=== PATIENT | female | born 1960 | race American Indian/Alaskan Native ===

== ENCOUNTER 2016-05-24 08:41 | Day surgery (SDC) | payer MEDICARE ==
[~2016-05-24 08:41] MED LIST: TETRACAINE 0.5% OS PRN
[2016-05-24] MEDS: MYDRIACYL 1% OS SCH ×3 (10:54→11:08)
[2016-05-24] MEDS: AK-Dilate OS SCH ×3 (10:55→11:08)
[2016-05-24] MEDS: VIGAMOX OS SCH ×3 (10:55→11:08)
--- NOTE | 2016-05-24 11:09 | Anesthesia Consultation ---
Anesthesia Consult and Med Hx Date of service: 05/24/16 - Airway Anesthetic Teeth Evaluation: Dentures ROM Head & Neck: Adequate Mental/Hyoid Distance: Adequate Mallampati Class: Class II Intubation Access Assessment: Probably Good - Pulmonary Exam CTA: Yes - Cardiac Exam Cardiac Exam: RRR - Pre-Operative Health Status ASA Pre-Surgery Classification: ASA3 Proposed Anesthetic Plan: MAC - Pulmonary Hx Smoking: Yes (CIGARETTES 4 TO 5 CIGS PD) COPD: Yes (ON 02 2L N/C) Hx Sleep Apnea: Yes - Cardiovascular System Hx Hypertension: Yes - Central Nervous System Hx Seizures: Yes (LAST ONE 3 YRS AGO) CVA: Yes (X2) - Other Systems Hx Cancer: No
--- NOTE | 2016-05-24 11:09 | Anesthesia Day of Surgery ---
Anesthesia Day of Surgery - Day of Surgery Patient Examined: Yes Patient H&P Reviewed: Yes Patient is NPO: Yes
[2016-05-24] MEDS ORDERED: SUBLIMAZE ONE (11:33)
[2016-05-24] MEDS ORDERED: VERSED ONE (11:35)
[2016-05-24] MEDS ORDERED: DIPRIVAN 10 MG/ML IV ONE (12:56)
[2016-05-24] MEDS ORDERED: XYLOCAINE MPF 2% ONE (12:56)
[2016-05-24] MEDS ORDERED: NEO SYNEPHRINE/NS Syringe(OR USE) IV ONE (13:00)
[2016-05-24] MEDS ORDERED: ROBINUL ONE (13:21)
--- NOTE | 2016-05-24 13:29 | Operative Report ---
Operative Report Operative Report: PATIENT'S NAME: DATE OF : DATE OF SURGERY: 05/24/2016 PREOPERATIVE DIAGNOSIS: Cataract left eye POSTOPERATIVE DIAGNOSIS: Same OPERATIVE PROCEDURE: Phacoemulsification with intraocular lens implantation, left eye SURGEON: Shirlene Nash M.D. SAMPLE STITCHER SURGEON: Myrtle Lens: AO60 21.5 D ANESTHESIA: gENERAL anesthesia care in combination with topical anesthesia because of the established specific risk of reflux, arrhythmias, or anxiety attacks associated with ocular manipulation, as well as the difficulty of the nursing services manager to manage such potentially catastrophic events while simultaneously attempting to complete the surgical procedure and was deemed necessary for the patient's safety to have an Basin Tender present during the procedure whenever possible. An Basin Tender was utilized to regulate the intravenous sedation of the patient so the patient was cooperative yet not asleep in order for the patient to successfully maintain fixation of the eye on the operating light of the microscope. COMPLICATIONS: No surgical complications No blood loss. ALLERGIES: Penicillin PROGNOSIS: Excellent INDICATIONS FOR SURGERY: The patient is undergoing surgery in the hopes of eliminating or improving these visual difficulties. PROCEDURE: After arriving at the surgery center, the patient was given topical anesthetic and dilating drops, as noted in the record. The patient was then taken into the operating room and given more anesthetic drops. The eyelids , lashes, and lid margins were scrubbed with Betadine solution, and the patient was draped. The Nurse Basin Tender administered IV sedation and monitored the patient during the procedure. The eye was then fixated with a 0.12, and a stab incision was made in the peripheral clear cornea into the anterior chamber. This was made on my left side. Viscoelastic was next used to fill the anterior chamber. The eye was once again fixated with the 0.12 forceps and a keratome was used make an incision in clear cornea peripherally on my right hand side temporally. The capsule forceps were used to open the central anterior capsule and then make a continuous round capsulotomy. Hydrodissection was carried out utilizing a cannula and balanced salt solution to delineate the cortical material from the capsule and the nucleus from the cortical material. The phaco tip was introduced into the eye and used to remove the anterior cortical material in the area of the capsulotomy. Then the phaco tip was buried into the nucleus, and a chopping instrument was introduced into the eye and used to provide countertraction in the nucleus between this instrument and the phaco tip fracturing the nucleus. This procedure was repeated multiple times, providing multiple small segments of the lens, and then the phaco tip was used to remove each of these segments. An I/A tip was then used to remove the remaining cortex. The anterior chamber was refilled with viscoelastic. An one-piece, acrylic intraocular lens was then placed into an inserting cartridge. The tip of the inserting cartridge was introduced into the keratome incision and into the anterior chamber. The implant was gently advanced through the cartridge and into the eye, where it unfolded, and both haptics were placed in the capsular bag, where it centered nicely and appeared to be well fixated. After placement of the intraocular lens, the I~and~A handpiece was placed back into the eye and used to remove the viscoelastic, including viscoelastic that was behind the optic of the intraocular lens. The anterior chamber was then filled with balanced salt solution, and hydration of the wound was used to cause swelling of the wound and more appropriate watertight closure. When the wound was found to be firm, the patient was asked to comment on how bright the light was. If there was no light perception at all or if the light was substantially dimmer than during the rest of the surgery, the amount of fluid in the eye was decompressed to lower the intraocular pressure until the patient could see the bright light again. This was done to avoid any damage or decreased blood flow to the optic nerve. MEDICATIONS APPLIED AT END OF SURGERY: One drop of Pred Forte and Vigamox The patient was given a shield to wear at night and was instructed not to rub or push on the eye. DISCHARGE SUMMARY: The patient was released in stable condition. The patient and those with the patient were given a written sheet of postoperative instructions and counseling on any abnormal laboratory studies. The patient is to see us tomorrow for follow-up in the office and is to call immediately for any difficulties. Shirlene Nash M.D. Date
--- NOTE | 2016-05-24 13:30 | Short Stay Summary ---
Short Stay Documentation Date of service: 05/24/16 - History H&P: obtained from office - Allergies and Medications Current Medications: Allergies Penicillins Allergy (Verified 05/22/16 16:30) Shortness of Breath Home Medications Medication Instructions Recorded Confirmed Last Taken Type ALPRAZolam [Xanax TAB] 1 mg PO QID PRN 05/22/16 05/22/16 05/24/16 06:00 History Baclofen [Lioresal] 10 mg PO TID 05/22/16 05/22/16 05/24/16 06:00 History Clopidogrel [Plavix] 75 mg PO QDAY 05/22/16 05/24/16 05/09/16 History Cranberry Fruit [Cranberry] 4,200 mg PO BID 05/22/16 05/22/16 05/23/16 History Cyanocobalamin (Vitamin B-12) 1,000 mcg PO QDAY 05/22/16 05/22/16 05/23/16 History [B-12] Folic Acid [Folvite] 1 mg PO QDAY 05/22/16 05/22/16 05/23/16 History Gabapentin [Neurontin] 600 mg PO QID 05/22/16 05/22/16 05/24/16 06:00 History Lubiprostone (Nf) [Amitiza Cap 24 mcg PO BID 05/22/16 05/22/16 05/23/16 History (Nf)] Morphine ER [Ms Contin ER] 30 mg PO TID 05/22/16 05/22/16 05/24/16 06:00 History Multivitamin Tab [Multiple Vitamin 1 each PO QDAY 05/22/16 05/22/16 05/23/16 History TAB (Theragran)] Omeprazole/Sodium Bicarbonate 1 each PO QPM 05/22/16 05/22/16 05/23/16 History [Zegerid 20-1,100 mg] Ondansetron [Zofran TAB] 4 mg PO QDAY PRN 05/22/16 05/22/16 05/23/16 History Oxycodone HCl/Acetaminophen 1 each PO Q6HR PRN 05/22/16 05/24/16 05/24/16 06:00 History [Percocet 10/325 mg] Pimozide [Orap] 1 mg PO QDAY PRN 05/22/16 05/22/16 05/23/16 History Promethazine [Phenergan TAB] 25 mg PO QDAY PRN 05/22/16 05/22/16 05/23/16 History QUEtiapine [SEROquel] 200 mg PO QHS 05/22/16 05/22/16 05/23/16 History Roflumilast [Daliresp] 500 mcg PO QDAY 05/22/16 05/22/16 05/23/16 History buPROPion XL [Wellbutrin Xl] 150 mg PO QAM 05/22/16 05/22/16 05/23/16 History fluvoxaMINE (NF) [Luvox (Nf) Tab] 50 mg PO QHS PRN 05/22/16 05/22/16 05/23/16 History Active Medications Moxifloxacin HCl (Vigamox) 1 drops OS Q5MIN [facility] Stop: 05/24/16 18:00 Last Admin: 05/24/16 11:08 Dose: 1 drops Phenylephrine HCl (Ak-Dilate) 1 drops OS Q5M [facility] Stop: 05/24/16 18:00 Last Admin: 05/24/16 11:08 Dose: 1 drops Prednisolone Acetate (Pred Forte 1%) 1 drops OS QID [facility] Tetracaine HCl (Tetracaine 0.5%) 1 drops OS Q5M PRN PRN Reason: Analgesia Stop: 05/24/16 18:00 Last Admin: 05/24/16 10:53 Dose: 1 drops Tropicamide (Mydriacyl 1%) 1 drops OS Q5MIN [facility] Stop: 05/24/16 18:00 Last Admin: 05/24/16 11:08 Dose: 1 drops - Brief post op/procedure progress note Date of procedure: 05/24/16 Pre-op diagnosis: LEFT CATARACT Post-op diagnosis: same Procedure: Phacoemulsification with intraocular lens insertion left eye Anesthesia: GETA Surgeon: EDWIN KLEIN Estimated blood loss: none Pathology: none Condition: stable - Disposition Condition at discharge: Good Disposition: DISCHARGED TO HOME OR SELFCARE - Discharge Diagnoses (1) Cataract Status: Resolved
[2016-05-24] MEDS ORDERED: PRED FORTE 1% OS SCH (14:00)
--- NOTE | 2016-05-24 14:07 | Post Anesthesia Evaluation ---
- Post Anesthesia Evaluation Patient Participated: Yes Airway Patent: Yes Stable Respiratory Function: Yes Nausea/Vomiting: No Temp > 96.8F: Yes Pain Manageable: Yes Adequeate Hydration: Yes Anesthesia Complications: No Block Receding Appropriately: Not Applicable Patient on Ventilator: No
[2016-05-24] MEDS ORDERED: FLUSH HEPARIN IV NR (14:22)
[2016-05-24] MEDS ORDERED: NACL P/F VIAL (10 ML) 10 ML ONE (14:28)
[2016-05-24 15:46] VITALS: BP 90/60
== END 2016-05-24 14:45 | disposition home or self-care (01) ==
LOC: OR 08:41
DX: H26.9 Unspecified cataract (principal); M19.90 Unspecified osteoarthritis, unspecified site; G43.909 Migraine, unspecified, not intractable, without status migrainosus; F17.210 Nicotine dependence, cigarettes, uncomplicated; J44.9 Chronic obstructive pulmonary disease, unspecified; I10 Essential (primary) hypertension; K21.9 Gastro-esophageal reflux disease without esophagitis; Z86.73 Personal history of transient ischemic attack (TIA), and cerebral infarction without residual deficits
CPT/HCPCS: 66984; J1642; J2250; J2370; J2704; J3010; V2632

== ENCOUNTER 2016-06-21 06:19 | Day surgery (SDC) | payer MEDICARE ==
[~2016-06-21 06:19] MED LIST changes: +NACL 0.9% IR ONE; +TETRACAINE 0.5% OD PRN; -TETRACAINE 0.5% OS PRN
[2016-06-21] MEDS: VIGAMOX OD SCH ×3 (07:35→07:45)
[2016-06-21] MEDS: AK-Dilate OD SCH ×3 (07:35→07:45)
[2016-06-21] MEDS: MYDRIACYL OD SCH ×3 (07:35→07:45)
--- NOTE | 2016-06-21 08:58 | Anesthesia Consultation ---
Anesthesia Consult and Med Hx Date of service: 06/21/16 - Airway Anesthetic Teeth Evaluation: Poor (bottom implant), Dentures ROM Head & Neck: Adequate Mental/Hyoid Distance: Adequate Mallampati Class: Class II Intubation Access Assessment: Probably Good - Pulmonary Exam CTA: Yes - Cardiac Exam Cardiac Exam: RRR - Pre-Operative Health Status ASA Pre-Surgery Classification: ASA3 Proposed Anesthetic Plan: MAC - Pulmonary Hx Smoking: Yes (Quit 1 MONTH AGO) COPD: Yes (ON 2L N/C PRN) Hx Sleep Apnea: Yes - Cardiovascular System Hx Hypertension: Yes Hx Coronary Artery Disease: No - Central Nervous System Hx Neuromuscular Disorder: Yes (BRAIN ANEURSYM IN 2001) Hx Seizures: Yes (LAST ONE 3 YRS AGO, NOT ON MEDS) CVA: Yes (X2, 2001 NO RESIDUAL WEAKNESS) Hx Back Pain: Yes Hx Psychiatric Problems: Yes - Endocrine Hx Renal Disease: No Hx End Stage Renal Disease: No Hx Cirrhosis: No Hx Liver Disease: No Hx Non-Insulin Dependent Diabetes: No Hx Thyroid Disease: No - Other Systems Hx Cancer: No Hx Obesity: No
--- NOTE | 2016-06-21 08:59 | Anesthesia Day of Surgery ---
Anesthesia Day of Surgery - Day of Surgery Patient Examined: Yes Patient H&P Reviewed: Yes Patient is NPO: Yes
[2016-06-21] MEDS ORDERED: DIPRIVAN 10 MG/ML IV ONE (09:17)
[2016-06-21] MEDS ORDERED: NACL 0.9% 100 ML ONE (09:19)
[2016-06-21] MEDS ORDERED: XYLOCAINE MPF 2% ONE (09:19)
[2016-06-21] MEDS ORDERED: ZOFRAN ONE (09:40)
[2016-06-21] MEDS ORDERED: NACL 0.9% IR ONE (09:51)
--- NOTE | 2016-06-21 10:17 | Operative Report ---
Operative Report Operative Report: PATIENT'S NAME: DATE OF : DATE OF SURGERY: 06/21/2016 PREOPERATIVE DIAGNOSIS: Cataract right eye POSTOPERATIVE DIAGNOSIS: Same OPERATIVE PROCEDURE: Phacoemulsification with intraocular lens implantation, right eye SURGEON: Shirlene Nash M.D. PRODUCTION CLOTH CUTTER SURGEON: Myrtle Lens: AO60 20.0 D ANESTHESIA: Monitored anesthesia care in combination with topical and intracameral anesthesia because of the established specific risk of reflux, arrhythmias, or anxiety attacks associated with ocular manipulation, as well as the difficulty of the customer service associate to manage such potentially catastrophic events while simultaneously attempting to complete the surgical procedure and was deemed necessary for the patient's safety to have an Punch Press Setter present during the procedure whenever possible. An Punch Press Setter was utilized to regulate the intravenous sedation of the patient so the patient was cooperative yet not asleep in order for the patient to successfully maintain fixation of the eye on the operating light of the microscope. COMPLICATIONS: No surgical complications No blood loss. ALLERGIES: Penicillin PROGNOSIS: Excellent INDICATIONS FOR SURGERY: The patient is undergoing surgery in the hopes of eliminating or improving these visual difficulties. PROCEDURE: After arriving at the surgery center, the patient was given topical anesthetic and dilating drops, as noted in the record. The patient was then taken into the operating room and given more anesthetic drops. The eyelids , lashes, and lid margins were scrubbed with Betadine solution, and the patient was draped. The Nurse Punch Press Setter administered IV sedation and monitored the patient during the procedure. The eye was then fixated with a 0.12, and a stab incision was made in the peripheral clear cornea into the anterior chamber. This was made on my left side. Viscoelastic was next used to fill the anterior chamber. The eye was once again fixated with the 0.12 forceps and a keratome was used make an incision in clear cornea peripherally on my right hand side temporally. The capsule forceps were used to open the central anterior capsule and then make a continuous round capsulotomy. Hydrodissection was carried out utilizing a cannula and balanced salt solution to delineate the cortical material from the capsule and the nucleus from the cortical material. The phaco tip was introduced into the eye and used to remove the anterior cortical material in the area of the capsulotomy. Then the phaco tip was buried into the nucleus, and a chopping instrument was introduced into the eye and used to provide countertraction in the nucleus between this instrument and the phaco tip fracturing the nucleus. This procedure was repeated multiple times, providing multiple small segments of the lens, and then the phaco tip was used to remove each of these segments. An I/A tip was then used to remove the remaining cortex. The anterior chamber was refilled with viscoelastic. An one-piece, acrylic intraocular lens was then placed into an inserting cartridge. The tip of the inserting cartridge was introduced into the keratome incision and into the anterior chamber. The implant was gently advanced through the cartridge and into the eye, where it unfolded, and both haptics were placed in the capsular bag, where it centered nicely and appeared to be well fixated. After placement of the intraocular lens, the I~and~A handpiece was placed back into the eye and used to remove the viscoelastic, including viscoelastic that was behind the optic of the intraocular lens. The anterior chamber was then filled with balanced salt solution, and hydration of the wound was used to cause swelling of the wound and more appropriate watertight closure. When the wound was found to be firm, the patient was asked to comment on how bright the light was. If there was no light perception at all or if the light was substantially dimmer than during the rest of the surgery, the amount of fluid in the eye was decompressed to lower the intraocular pressure until the patient could see the bright light again. This was done to avoid any damage or decreased blood flow to the optic nerve. MEDICATIONS APPLIED AT END OF SURGERY: One drop of Pred Forte and Vigamox The patient was given a shield to wear at night and was instructed not to rub or push on the eye. DISCHARGE SUMMARY: The patient was released in stable condition. The patient and those with the patient were given a written sheet of postoperative instructions and counseling on any abnormal laboratory studies. The patient is to see us tomorrow for follow-up in the office and is to call immediately for any difficulties. Shirlene Nash M.D. Date
--- NOTE | 2016-06-21 10:18 | Short Stay Summary ---
Short Stay Documentation Date of service: 06/21/16 - History H&P: obtained from office - Allergies and Medications Current Medications: Allergies Penicillins Allergy (Verified 06/14/16 11:46) Shortness of Breath Home Medications Medication Instructions Recorded Confirmed Last Taken Type ALPRAZolam [Xanax TAB] 1 mg PO QID PRN 05/22/16 06/14/16 05/24/16 06:00 History Baclofen [Lioresal] 10 mg PO TID 05/22/16 06/14/16 05/24/16 06:00 History Clopidogrel [Plavix] 75 mg PO QDAY 05/22/16 06/14/16 05/09/16 History Cranberry Fruit [Cranberry] 4,200 mg PO BID 05/22/16 06/14/16 05/23/16 History Cyanocobalamin (Vitamin B-12) 1,000 mcg PO QDAY 05/22/16 06/14/16 05/23/16 History [B-12] Folic Acid [Folvite] 1 mg PO QDAY 05/22/16 06/14/16 05/23/16 History Gabapentin [Neurontin] 600 mg PO QID 05/22/16 06/14/16 05/24/16 06:00 History Lubiprostone (Nf) [Amitiza Cap 24 mcg PO BID 05/22/16 06/14/16 05/23/16 History (Nf)] Morphine ER [Ms Contin ER] 30 mg PO TID 05/22/16 06/14/16 05/24/16 06:00 History Multivitamin Tab [Multiple Vitamin 1 each PO QDAY 05/22/16 06/14/16 05/23/16 History TAB (Theragran)] Omeprazole/Sodium Bicarbonate 1 each PO QPM 05/22/16 06/14/16 05/23/16 History [Zegerid 20-1,100 mg] Ondansetron [Zofran TAB] 4 mg PO QDAY PRN 05/22/16 06/14/16 05/23/16 History Oxycodone HCl/Acetaminophen 1 each PO Q6HR PRN 05/22/16 06/14/16 05/24/16 06:00 History [Percocet 10/325 mg] Pimozide [Orap] 1 mg PO QDAY PRN 05/22/16 06/14/16 05/23/16 History Promethazine [Phenergan TAB] 25 mg PO QDAY PRN 05/22/16 06/14/16 05/23/16 History QUEtiapine [SEROquel] 200 mg PO QHS 05/22/16 06/14/16 05/23/16 History Roflumilast [Daliresp] 500 mcg PO QDAY 05/22/16 06/14/16 05/23/16 History buPROPion XL [Wellbutrin Xl] 150 mg PO QAM 05/22/16 06/14/16 05/23/16 History fluvoxaMINE (NF) [Luvox (Nf) Tab] 50 mg PO QHS PRN 05/22/16 06/14/16 05/23/16 History Active Medications Moxifloxacin HCl (Vigamox) 1 drops OD Q5MIN [facility] Stop: 06/21/16 16:00 Last Admin: 06/21/16 07:45 Dose: 1 drops Phenylephrine HCl (Ak-Dilate) 1 drops OD Q5MIN [facility] Stop: 06/21/16 16:00 Last Admin: 06/21/16 07:45 Dose: 1 drops Prednisolone Acetate (Pred Forte 1%) 1 drops OD QID [facility] Tetracaine HCl (Tetracaine 0.5%) 1 drops OD Q5M PRN PRN Reason: Analgesia Last Admin: 06/21/16 07:35 Dose: 1 drops Tropicamide (Mydriacyl) 1 drops OD Q5MIN [facility] Stop: 06/21/16 16:00 Last Admin: 06/21/16 07:45 Dose: 1 drops - Brief post op/procedure progress note Date of procedure: 06/21/16 Pre-op diagnosis: right cataract Post-op diagnosis: same Procedure: Phacoemulsification with intraocular lens insertion right eye Anesthesia: MAC Surgeon: EDWIN KLEIN Estimated blood loss: none Pathology: none - Disposition Condition at discharge: Good Disposition: DISCHARGED TO HOME OR SELFCARE - Discharge Diagnoses (1) Cataract Status: Resolved
[2016-06-21] MEDS ORDERED: PRED FORTE 1% OD SCH (11:00)
[2016-06-21 16:40] VITALS: BP 120/69
== END 2016-06-21 11:00 | disposition home or self-care (01) ==
LOC: OR 06:19
DX: H26.9 Unspecified cataract (principal); G43.909 Migraine, unspecified, not intractable, without status migrainosus; M19.90 Unspecified osteoarthritis, unspecified site; I10 Essential (primary) hypertension; K21.9 Gastro-esophageal reflux disease without esophagitis; F41.9 Anxiety disorder, unspecified; J44.9 Chronic obstructive pulmonary disease, unspecified; Z86.73 Personal history of transient ischemic attack (TIA), and cerebral infarction without residual deficits; Z79.899 Other long term (current) drug therapy; Z87.891 Personal history of nicotine dependence
CPT/HCPCS: 66984; J2405; J2704; V2632